=== PATIENT | male | born 1940 | race Caucasian/White ===

== ENCOUNTER 2020-06-28 12:03 | Emergency (ER) | payer OTHER, SELFPAY ==
[2020-06-28] VITALS (14 sets, daily range): BP systolic 163–189; BP diastolic 69–84; PULSE 80–98; RESP 16–18; TEMP 36.4; O2SAT 96–99
--- NOTE | 2020-06-28 12:23 | ED.GENADUL_ITS ---
Discharge Plan Disposition Patient Disposition: HOME Condition: Stable Discharge Details Clinical Impression: Acute anterior epistaxis, Elevated blood pressure reading Primary Care Provider: Unknown,Unknown ED Provider: Eliud Gallegos Home Meds and New Rx's Prescriptions: Continued atorvastatin [Lipitor] 20 MG tablet 10 mg PO DAILY RF: 0 lisinopril 5 MG tablet 40 mg PO DAILY RF: 0 metoprolol tartrate 12.5 MG tablet 50 mg PO DAILY RF: 0 cyanocobalamin (vitamin B-12) 1,000 mcg Tablet 1,000 mcg PO DAILY RF: 0 amlodipine 5 mg Tablet 5 mg PO DAILY RF: 0 cholecalciferol (vitamin D3) 25 mcg (1,000 unit) Capsule 25 mcg PO .QOD RF: 0 omeprazole 20 mg Tablet,Delayed Release (Dr/Ec) 20 mg PO .QHS RF: 0 Discontinued epinephrine [EpiPen 2-Norberto] 0.3 MG/0.3 ML auto-injector 0.3 mg IJ DIRECTED PRN (Reason: Angioedema) Qty: 1 RF: 0 Discharge Instructions Instructions: Nosebleed (ED) Additional Instructions: Please take your medications as prescribed. You had listed in your medication EpiPen and noted that you were not taking this I did not know why you are prescribed this and as such this medication has been removed from your medication list. Please discuss this with your primary care physician. Your blood pressure was elevated today. Please continue to monitor. If blood pressure remains elevated he may need blood pressure medications adjusted by your primary care doctor. Please contact your primary care physician to arrange follow-up. Please follow-up with speech therapist early intervention in the next 3 to 5 days. This referral has been faxed to the speech therapist early intervention who will be in contact with you. Dr. Parra's [facility] office number is [phone]. Return to the ER for any worsening or new concerning symptoms. Referrals: Paxton Parra MD [ [facility] STAFF PHYSICIAN] - Discharge Data Discharge Date/Time-TO BE ENTERED AT DEPARTURE: 06/28/20 14:18 Medical Decision Making 79-year-old male with history of hypertension presents with epistaxis from left nare after picking his nose. Patient is hypertensive on arrival. Patient does not use any anticoagulants and does not typically have nosebleeds. Afrin spray was applied intranasally and nasal clamp applied for extended period of time. Hemostasis achieved with removal of clamp. Bleeding then restarted when patient was ambulating to the bathroom. Left nare packed with anterior Rhino Rocket. Plan for outpatient follow-up with ENT in 2 to 5 days. Patient was encouraged to return immediately for any worsening or new concerning symptoms. HPI General Mode of arrival: ambulatory . Date/Time Provider Initiated Documentation: 06/28/20 12:23 . Limitations to Documentation: no limitations . Information obtained by: patient . HPI Narrative: 79-year-old male with history of hypertension presents with epistaxis from right nare after picking his nose just prior to arrival today. Bleeding has been heavy and persistent. Bleeding improved with manual pressure. He has not had recent similar episodes. Patient is not on anticoagulant. Related Data Home Medications Medication Instructions Recorded Confirmed atorvastatin [Lipitor] 10 mg PO DAILY 10/13/14 06/28/20 lisinopril 40 mg PO DAILY 10/13/14 06/28/20 metoprolol tartrate 50 mg PO DAILY 10/13/14 06/28/20 amlodipine 5 mg PO DAILY 06/28/20 06/28/20 cholecalciferol (vitamin D3) 25 mcg PO .QOD 06/28/20 06/28/20 cyanocobalamin (vitamin B-12) 1,000 mcg PO DAILY 06/28/20 06/28/20 omeprazole 20 mg PO .QHS 06/28/20 06/28/20 Allergies Allergy/AdvReac Type Severity Reaction Status Date / Time cantalope Allergy Severe Anaphylaxsi Uncoded 06/28/20 12:20 s apple peelings Allergy Swelling/Ed Uncoded 06/28/20 12:20 edwin General Stated Complaint: Epistaxis MOHIT: 3 Review of Systems All systems reviewed & are unremarkable except as noted in HPI and below Constitutional Constitutional: Denies headache(s) ENT Ears, Nose, Mouth, and Throat: Reports as per HPI and Denies headache(s) Comments: epistaxis Neurologic Neurologic: Denies headache(s) [facility] Social History Smoking/Tobacco Use Status: Never Smoking risk assessment performed?: Yes Drug use: Never Exam Const General: cooperative and anxious Nutritional Appearance: average body habitus Orientation: alert and awake [facility] General nose exam: epistaxis on the left active bleeding and source not visualized Mouth: moist mucous membranes Throat: posterior oropharynx normal Eyes Conjunctivae: normal conjunctivae Sclera: normal sclerae Neck Neck: trachea midline and supple Resp Auscultation: clear to auscultation bilaterally, no rales, no rhonchi and no wheezes Cardio Rate: regular rate and not tachycardic Rhythm: regular rhythm Neuro General: patient alert, patient awake and tone normal Course Vital Signs Vital signs: Vital Signs Temperature 36.4 C L 06/28/20 12:14 Pulse 98 H 06/28/20 12:14 Respiratory Rate 18 06/28/20 12:14 Blood Pressure 189/84 H 06/28/20 12:14 Pulse Oximetry 98 06/28/20 12:14 Temperature 36.4 C L 06/28/20 12:14 Temperature Source Temporal Artery Scan 06/28/20 12:14 Pulse 98 H 06/28/20 12:14 Respiratory Rate 18 06/28/20 12:14 Respiratory Effort Non-Labored 06/28/20 12:14 Blood Pressure 189/84 H 06/28/20 12:14 Blood Pressure Position Sitting 06/28/20 12:14 Pulse Oximetry 98 06/28/20 12:14 Oxygen Delivery Method Room Air 06/28/20 12:14 Oxygen Flow Rate 0 06/28/20 12:14 Pain Level 0 06/28/20 12:14
[2020-06-28] MEDS: Oxymetazolone 0.05% SPRAY 15 ML BTL (12:27)
--- NOTE | 2020-06-28 13:46 | NUR.NOTE ---
Nursing Note: Referral to ENT faxed for follow up, Marguerite Kimble
== END 2020-06-28 14:18 | disposition home or self-care (01) ==
PROVIDERS: Emergency Provider Student in an Organized Health Care Education/Training Program
DX: R04.0 Epistaxis (principal); I10 Essential (primary) hypertension
CPT/HCPCS: 30901

== ENCOUNTER 2020-09-03 07:51 | Emergency (ER) | payer OTHER, SELFPAY ==
[2020-09-03 07:54] VITALS: BP 165/95; PULSE 110; RESP 20; TEMP 36.9; O2SAT 100
--- NOTE | 2020-09-03 08:05 | W.ED.GENAD ---
Discharge Plan Disposition Patient Disposition: HOME Condition: Improving Discharge Details Clinical Impression: Acute urinary retention Primary Care Provider: Moses Stuart ED Provider: Ankush Magana Home Meds and New Rx's Prescriptions: Continued atorvastatin [Lipitor] 20 MG tablet 10 mg PO DAILY RF: 0 lisinopril 5 MG tablet 40 mg PO DAILY RF: 0 metoprolol tartrate 12.5 MG tablet 50 mg PO DAILY RF: 0 cyanocobalamin (vitamin B-12) 1,000 mcg Tablet 1,000 mcg PO DAILY RF: 0 amlodipine 5 mg Tablet 5 mg PO DAILY RF: 0 cholecalciferol (vitamin D3) 25 mcg (1,000 unit) Capsule 25 mcg PO .QOD RF: 0 omeprazole 20 mg Tablet,Delayed Release (Dr/Ec) 20 mg PO .QHS RF: 0 Discharge Instructions Instructions: Urinary Retention in Men (ED) Additional Instructions: Our care management team will arrange a follow-up for you in the urology clinic for recheck and for a voiding trial. Leave the Gardner catheter in place. Return if you develop a fever, recurrent inability to urinate, or any other acute concerns. You should avoid the use of Benadryl or decongestant cold medications. Medical Decision Making 79-year-old male presents from home with inability to urinate since last evening. Now with suprapubic pain. Otherwise without complaint and no recent illness. He is in some distress, slightly tachycardic and hypertensive. He has a distended lower abdomen. Most consistent with urinary retention. Denies any recent medication changes. Gardner catheter placed. Nearly 1 L of urine output and complete relief subjectively by the patient. Subsequently had some crackers and water. Instructed on a leg bag and home care. [facility] is [facility] and will need to either follow-up locally with Dr. Ahuja or the [facility] for a voiding trial this week. No signs or symptoms of systemic illness. He is stable and appropriate for discharge to home at this time. HPI General Mode of arrival: ambulatory. Date/Time Provider Initiated Documentation: 09/03/20 08:04. Limitations to Documentation: no limitations. Information obtained by: patient. History of Present Illness 79 year old M presents to the emergency department with the chief complaint of URinary retention, described as moderate, Quality is described as dull and constant, and is localized to the abdomen and pelvis. Patient reports no radiation. Patient started experiencing this hour(s) and it has been constant. No relieving factors improve symptom(s), No exacerbating factors reported . Patient notes denies fever/chills, loss of appetite and nausea/vomiting. Patient did receive the following treatments prior to arrival, none Related Data Home Medications Medication Instructions Recorded Confirmed atorvastatin [Lipitor] 10 mg PO DAILY 10/13/14 09/03/20 lisinopril 40 mg PO DAILY 10/13/14 09/03/20 metoprolol tartrate 50 mg PO DAILY 10/13/14 09/03/20 amlodipine 5 mg PO DAILY 06/28/20 09/03/20 cholecalciferol (vitamin D3) 25 mcg PO .QOD 06/28/20 09/03/20 cyanocobalamin (vitamin B-12) 1,000 mcg PO DAILY 06/28/20 09/03/20 omeprazole 20 mg PO .QHS 06/28/20 09/03/20 Allergies Allergy/AdvReac Type Severity Reaction Status Date / Time cantalope Allergy Severe Anaphylaxsi Uncoded 09/03/20 07:59 s apple peelings Allergy Swelling/Ed Uncoded 09/03/20 07:59 edwin General Stated Complaint: Urinary MOHIT: 3 Review of Systems Narrative: No recent medication changes, denies use of Benadryl. No recent fevers, chills, vomiting. 6 systems reviewed and otherwise negative [facility] Social History Smoking/Tobacco Use Status: Never Smoking risk assessment performed?: Yes Drug use: Never Do you feel safe at home: Yes Do you feel safe in your relationship?: Yes Exam Narrative Exam Narrative: GEN: awake, alert, oriented 3. Pleasant, well groomed, interactive. HEAD: Normocephalic, atraumatic ENT: Mucous membranes moist, oropharynx unremarkable, External ear exam unremarkable EYES: PERRL, EOMI NECK: Full ROM, no PATY, no menigismus CHEST/RESP: Nontender, clear to auscultation bilateral, no wheeze/rhonchi/rales CARDIOVASCULAR: RRR with a borderline tachycardia at time of exam, no murmur, rub monica. 2+ Rad pulse bilateral ABDOMEN: Soft, distended suprapubic, mildly tender, no rebound, uncircumcised, testes descended bilaterally, no masses or tenderness. +Bowel sounds EXT: Full ROM, no edema, no rash Neuro: Grossly normal neurologic exam, conversant, interactive. Psych: Speech fluent, thoughts congruent, affect normal Course Vital Signs Vital signs: Vital Signs Temperature 36.9 C 09/03/20 07:54 Pulse 110 H 09/03/20 07:54 Respiratory Rate 20 09/03/20 07:54 Blood Pressure 165/95 H 09/03/20 07:54 Pulse Oximetry 100 09/03/20 07:54 Temperature 36.9 C 09/03/20 07:54 Temperature Source Temporal Artery Scan 09/03/20 07:54 Pulse 110 H 09/03/20 07:54 Respiratory Rate 09/03/20 07:54 Respiratory Effort Non-Labored 09/03/20 07:58 Blood Pressure 165/95 H 09/03/20 07:54 Blood Pressure Position Supine 09/03/20 07:54 Pulse Oximetry 100 09/03/20 07:54 Oxygen Delivery Method Room Air 09/03/20 07:54 Oxygen Flow Rate 0 09/03/20 07:54 Pain Level 10 09/03/20 08:00
--- NOTE | 2020-09-03 08:17 | NUR.NOTE ---
Nursing Note: Referral faxed to [facility] Urology for follow up. Marguerite Kimble
[2020-09-03] MEDS: Lidocaine 2% Jelly 6 ML SYR (08:24)
== END 2020-09-03 08:42 | disposition home or self-care (01) ==
PROVIDERS: Emergency Provider Emergency Medicine; PCP Internal Medicine
DX: R33.8 Other retention of urine (principal)
CPT/HCPCS: 51702; 99283